=== PATIENT | female | born 1995 | race Two or more races ===

== ENCOUNTER 2016-11-14 09:59 | Emergency (ER) | payer SELFPAY ==
[~2016-11-14] VITALS: Ht 172.7 cm; Wt 77.0 kg
[2016-11-14 11:16] VITALS: BP 107/58
[2016-11-14 11:20] LABS: CLARITY URINE TURBID (CLEAR); COLOR URINE YELLOW (YELLOW); GLUCOSE URINE NEGATIVE (NEGATIVE); KETONES URINE NEGATIVE (NEGATIVE); LEUKOCYTE ESTERASE URINE 3+ (NEGATIVE); NITRITE URINE POSITIVE (NEGATIVE); OCCULT BLOOD URINE 2+ (NEGATIVE); PROTEIN URINE 2+ (NEGATIVE); SPECIFIC GRAVITY URINE 1.009 (1.005-1.030); UROBILINOGEN URINE 0.2 E.U./dL (0.2-1.0)
== END 2016-11-14 12:47 | disposition home or self-care (01) ==
LOC: ER 10:00
DX: N39.0 Urinary tract infection, site not specified (principal)
CPT/HCPCS: 81001; 81025; 99283; Z7610

== ENCOUNTER 2017-07-27 14:55 | Observation (INO) | payer MEDICAID ==
[~2017-07-27] VITALS: Ht 175.3 cm; Wt 102.0 kg
[2017-07-27] MEDS ORDERED: PNV1TABL76 MT (16:19)
[2017-07-27 17:57] VITALS: BP 117/69
== END 2017-07-27 16:45 | disposition home or self-care (01) ==
LOC: ER 14:55 → L&D 16:06
PROVIDERS: ADMIT Specialist; ATTEND Specialist
DX: O26.893 Other specified pregnancy related conditions, third trimester (principal); R42 Dizziness and giddiness; Z3A.33 33 weeks gestation of pregnancy
CPT/HCPCS: G0378